=== PATIENT | female | born 1950 | race Caucasian/White ===

== ENCOUNTER → 2023-11-09 06:37 | Day surgery (SDC) | payer OTHER, SELFPAY | LOC: GI 06:37 | PROVIDERS: ATTENDING PHYSICIAN Internal Medicine Gastroenterology | DX: R19.7 Diarrhea, unspecified (principal); R13.10 Dysphagia, unspecified; K31.89 Other diseases of stomach and duodenum; K31.7 Polyp of stomach and duodenum; K44.9 Diaphragmatic hernia without obstruction or gangrene; K22.89 Other specified disease of esophagus | CPT/HCPCS: 43239; 88305; 88342 ==

== ENCOUNTER → 2024-12-06 16:30 | Outpatient (REF) | payer OTHER, SELFPAY | LOC: PAVMRI 16:30 | PROVIDERS: FAMILY PHYSICIAN Family Medicine | DX: M48.062 Spinal stenosis, lumbar region with neurogenic claudication (principal) | CPT/HCPCS: 72148 ==